=== PATIENT | female | born 1965 | race Caucasian/White ===

== ENCOUNTER 2017-04-09 21:29 | Emergency (ER) | payer OTHER ==
[~2017-04-09] VITALS: Ht 162.6 cm; Wt 65.0 kg
[2017-04-09 21:53] VITALS: Ht 162.6 cm; Wt 65.0 kg
[2017-04-09] MEDS ORDERED: CEPH-443 PO (23:22)
--- NOTE | 2017-04-09 23:22 | ERD ---
ER Documentation Chief Complaint Chief Complaint spider bite to left arm 3 days ago, c/o pain left arm HPI Otherwise healthy 52-year-old female presenting with a chief complaint of spider bite on the left arm 3 days ago. Describes the spider as black and about the size of a quarter. States that and now feels "weird". Patient describes the "weirdness" as tingly. Denies any numbness, loss of range of motion, fever, chills, headache, abdominal pain, nausea, vomiting, constipation , diarrhea. Patient has not taken any medications to relieve the symptoms. Tetanus status unknown. No sick contacts. ROS All systems reviewed and are negative except as per history of present illness. Medications Home Meds No Active Prescriptions or Reported Meds Allergies Allergies: Coded Allergies: No Known Drug Allergies (Verified Allergy, Unknown, 04/09/17) PMhx/Soc History of Surgery: No Anesthesia Reaction: No Hx Neurological Disorder: No Hx Respiratory Disorders: No Hx Cardiac Disorders: No Hx Psychiatric Problems: No Hx Miscellaneous Medical Probl: No Hx Alcohol Use: No Hx Substance Use: No Hx Tobacco Use: No Physical Exam Vitals Vital Signs Date Time Temp Pulse Resp B/P Pulse Ox O2 Delivery O2 Flow Rate FiO2 04/09/17 21:53 97.0 68 20 109/58 99 Physical Exam Const: [] Head: Atraumatic Eyes: Normal Conjunctiva ENT: Normal External Ears, Nose and Mouth. Neck: Full range of motion..~ No meningismus. Resp: Clear to auscultation bilaterally Cardio: Regular rate and rhythm, no murmurs Abd: Soft, non tender, non distended. Normal bowel sounds Skin: No petechiae or rashes Back: No midline or flank tenderness Ext: No cyanosis, or edema Neur: Awake and alert Psych: Normal Mood and Affect Results 24 hrs Current Medications Medications (Trade) Dose Ordered Sig/Shivam Route PRN Reason Start Time Stop Time Status Last Admin Dose Admin Diphtheria/ Tetanus/Acell Pertussis (Adacel) 0.5 ml ONCE ONCE IM* 04/09/17 23:30 04/09/17 23:31 Procedures/MDM Otherwise healthy 52-year-old female presenting with a chief complaint of spider bite 3 days ago. Physical examination was unremarkable. No red flags for cellulitis or other bacterial involvement. I have little suspicion for admitting this is a spider bite. Patient will be given Keflex p.o. outpatient. Tetanus was given in the ED. I have spoke with the patient regarding their condition and future management. They have verbally responded that they understand their status and treatment plan. Work note has been given. The patients vitals are stable, and their current condition is appropriate for discharge. The patient will be given discharge instructions with return precautions. Departure Diagnosis: Primary Impression: Bite wound Condition: Stable Additional Instructions: Follow up with your PCP within the next 1-3 days for a more thorough evaluation and a possible referral to a specialist. Return the the emergency department immediately if symptoms worsen or change. If you have any questions regarding medications, ask your pharmacist or us before you leave. If any adverse reactions occur while taking your medications, discontinue the treatment and return to the emergency department immediately. Take your medications as directed, and complete the entire course of treatment. DOTTY ROSARIO PA-C Apr 09, 2017 23:21
[2017-04-09] MEDS ORDERED: DIPHTH/TET/ACEL PERTUSS (ADULT) 0.5 ML VIAL IM* ONE (23:30)
[2017-04-10 00:09] VITALS: BP 126/70; PULSE 67; RESP 18; TEMP 97.8
== END 2017-04-10 00:09 | disposition home or self-care (01) ==
LOC: FTE 21:29
DX: T63.311A Toxic effect of venom of black widow spider, accidental (unintentional), initial encounter (principal); Z23 Encounter for immunization
CPT/HCPCS: 90471; 90715